=== PATIENT | female | born 1990 | race Caucasian/White ===

== ENCOUNTER 2017-01-06 15:52 | Emergency (ER) | payer MEDICAID ==
[~2017-01-06] VITALS: Wt 101.0 kg
[2017-01-06] MEDS ORDERED: SODIUM CHLORIDE 0.9% 1L BAG IV* STA (16:25)
[2017-01-06] MEDS ORDERED: ACETAMINOPHEN 325 MG TAB PO STA (16:25)
--- NOTE | 2017-01-06 16:38 | ERD ---
ER Documentation Chief Complaint Chief Complaint R FOOT PAIN X 3 DAYS HPI 26-year-old female presenting with a chief complaints of right foot pain 3 days. Patient has had flu with body aches, fevers and chills, dry cough headache 5 days. Patient states the pain came on gradually. History of poking foot with needle. Croswell like something was in her foot. Denies drug use or alcohol abuse. No medications or medical conditions. Pain is worse with walking or applying pressure. Denies numbness, tingling, loss of range of motion. Patient has no other complaints and describes no other associated manifestations. ROS All systems reviewed and are negative except as per history of present illness. Medications Home Meds Active Scripts Sulfamethoxazole/Trimethoprim* (Bactrim Ds* Tablet) 1 Each Tablet, 1 TAB PO BID , #14 TAB Prov:CATHY DUMONT PA-C 01/06/17 Cephalexin* (Keflex*) 500 Mg Capsule, 500 MG PO QID for 5 Days, CAP Prov:CATHY DUMONT PA-C 01/06/17 PMhx/Soc Medical and Surgical Hx: pt denies Medical Hx, pt denies Surgical Hx Hx Alcohol Use: No Hx Substance Use: No Hx Tobacco Use: No Smoking Status: Never smoker Physical Exam Vitals Vital Signs Date Time Temp Pulse Resp B/P Pulse Ox O2 Delivery O2 Flow Rate FiO2 01/06/17 20:12 98.3 90 20 121/74 98 Room Air 01/06/17 18:40 99.0 82 16 117/74 99 Room Air 01/06/17 15:54 102.1 125 18 123/76 99 Physical Exam Const: Obese 26-year-old female no acute distress and acting appropriately. Head: Atraumatic Eyes: Normal Conjunctiva ENT: Normal External Ears, Nose and Mouth. Neck: Full range of motion..~ No meningismus. Resp: Clear to auscultation bilaterally Cardio: Regular rate and rhythm, no murmurs Abd: Soft, non tender, non distended. Normal bowel sounds Skin: No petechiae or rashes Back: No midline or flank tenderness Ext: Tenderness palpation over the right heel just distal to the plantar arch on the plantar surface of the foot. No fluctuance or induration appreciated. No warmth, change in skin color. Neur: Awake and alert Psych: Normal Mood and Affect Result Diagram: 01/06/17 1715 01/06/17 1715 Results 24 hrs Laboratory Tests Test 01/06/17 17:15 01/06/17 17:28 01/06/17 18:33 White Blood Count 10.910^3/ul Red Blood Count 4.3710^6/ul Hemoglobin 13.2g/dl Hematocrit 38.3% Mean Corpuscular Volume 87.6fl Mean Corpuscular Hemoglobin 30.2pg Mean Corpuscular Hemoglobin Concent 34.5g/dl Red Cell Distribution Width 12.4% Platelet Count 94840^3/UL Mean Platelet Volume 9.8fl Neutrophils % 77.1% Lymphocytes % 13.5% Monocytes % 7.9% Eosinophils % 0.6% Basophils % 0.5% Nucleated Red Blood Cells % 0.0/100WBC Neutrophils # 8.410^3/ul Lymphocytes # 1.510^3/ul Monocytes # 0.910^3/ul Eosinophils # 0.110^3/ul Basophils # 0.110^3/ul Nucleated Red Blood Cells # 0.010^3/ul Prothrombin Time 13.0Sec Prothrombin Time Ratio 1.0 INR International Normalized Ratio 0.98 Activated Partial Thromboplast Time 27.6Sec Sodium Level 141mmol/L Potassium Level 4.0mmol/L Chloride Level 102mmol/L Carbon Dioxide Level 25mmol/L Anion Gap 18 Blood Urea Nitrogen 12mg/dl Creatinine 0.74mg/dl Glucose Level 101mg/dl Lactic Acid Level 1.0mmol/L 0.8mmol/L Calcium Level 9.0mg/dl Total Bilirubin 0.5mg/dl Direct Bilirubin 0.00mg/dl Indirect Bilirubin 0.5mg/dl Aspartate Amino Transf (AST/SGOT) 35IU/L Alanine Aminotransferase (ALT/SGPT) 26IU/L Alkaline Phosphatase 77IU/L Troponin I < 0.012ng/ml Total Protein 8.4g/dl Albumin 4.6g/dl Globulin 3.80g/dl Albumin/Globulin Ratio 1.21 Urine Color YELLOW Urine Clarity SLIGHTLY CLOUDY Urine pH 6.0 Urine Specific [place] 1.025 Urine Ketones NEGATIVEmg/dL Urine Nitrite NEGATIVEmg/dL Urine Bilirubin NEGATIVEmg/dL Urine Urobilinogen 1+mg/dL Urine Leukocyte Esterase 2+Veronica/ul Urine Microscopic RBC 104/HPF Urine Microscopic WBC 34/HPF Urine Squamous Epithelial Cells MODERATE/HPF Urine Transitional Epithelial Cells FEW/HPF Urine Bacteria FEW/HPF Urine Mucus FEW/HPF Urine Hemoglobin 3+mg/dL Urine Glucose NEGATIVEmg/dL Urine Total Protein 1+mg/dl Current Medications Medications (Trade) Dose Ordered Sig/Ena Route PRN Reason Start Time Stop Time Status Last Admin Dose Admin Sodium Chloride (NS) 3,130 ml BOLUS OVER 2 HOURS STAT IV* 01/06/17 16:25 01/06/17 16:30 DC 01/06/17 17:15 Acetaminophen (Tylenol Tab) 650 mg ONCE STAT PO 01/06/17 16:25 01/06/17 16:30 DC 01/06/17 17:25 Procedures/MDM Otherwise healthy 26-year-old female presents with a chief complaint of right foot pain 3 days as described in history and physical examination. Fever 5 days. Presented the case my attending Dr. German who has suggested septic workup as the patient is septic until proven otherwise. Septic workup was ordered. Patient was given saline and acetaminophen. Urine negative. Labs revealed the following: WBC 10.9. Neutrophils 77. Lymphocytes 13.5. Anion gap 18. Urinalysis revealed the following: Leukocyte esterase 2+. RBC 104. WBC 34. Epithelial cell female. Bacteria few. Hemoglobin 3+. No CVA tenderness. Tolerates p.o. Physical exam revealed no fluctuant areas. Bedside ultrasound showed no hypoechoic fluid areas for drainage. Most likely diagnosis is cellulitis of the right lower extremity versus UTI versus viral illness. I have spoken to my attending Dr. German who agrees with assessment and plan. Patient will be given Keflex and Bactrim. I have no suspicion for pyelonephritis, lymphangitis, osteomyelitis, neurovascular compromise, or other serious bacterial infection. I have spoke with the patient regarding their condition and future management. They have verbally responded that they understand their status and treatment plan. The patients vitals are stable, and their current condition is appropriate for discharge. The patient will be given discharge instructions with return precautions. Departure Diagnosis: Primary Impression: Foot pain Laterality: right Qualified Code: M79.671 - Right foot pain Additional Impression: UTI (urinary tract infection) Urinary tract infection type: site unspecified Hematuria presence: with hematuria Qualified Code: N39.0 - Urinary tract infection with hematuria, site unspecified Condition: Stable Additional Instructions: Follow up with your PCP within the next 1-3 days for a more thorough evaluation and a possible referral to a specialist. Return the the emergency department immediately if symptoms worsen or change. If you have any questions regarding medications, ask your pharmacist or us before you leave. If any adverse reactions occur while taking your medications, discontinue the treatment and return to the emergency department immediately. Take your medications as directed, and complete the entire course of treatment. CATHY DUMONT PA-C Jan 06, 2017 16:38
--- NOTE | 2017-01-06 17:19 | RADRPT ---
PROCEDURE: XR Chest. CLINICAL INDICATION: Sepsis. TECHNIQUE: Single frontal view. COMPARISON: None. FINDINGS: The lungs are clear. The heart size is normal. There is no pleural effusion. There is no pneumothorax. IMPRESSION: 1. Normal chest radiograph. RPTAT: QQ .Eloy Kiran MD, Date Time Electronically viewed and signed by .Eloy Kiran MD, on 01/06/2017 17:19 .R/
--- NOTE | 2017-01-06 17:20 | RADRPT ---
PROCEDURE: XR Right Foot. CLINICAL INDICATION: Sepsis. Right foot pain. TECHNIQUE: 3 views. Frontal, lateral, and oblique. COMPARISON: None. FINDINGS: There is no fracture or dislocation. The soft tissues are normal. Articular surfaces are intact. There is no lytic or blastic lesion. There is no radiopaque foreign body. IMPRESSION: 1. Normal images of the right foot. RPTAT: QQ .Eloy Kiran MD, MD Date Time Electronically viewed and signed by .Eloy Kiran MD, on 01/06/2017 17:20 .R/
[2017-01-06] MEDS ORDERED: SULF1TAB31 PO (19:04)
[2017-01-06] MEDS ORDERED: CEPH-443 PO (19:04)
[2017-01-06 20:12] VITALS: BP 121/74; PULSE 90; RESP 20; TEMP 98.3
== END 2017-01-06 20:13 | disposition home or self-care (01) ==
LOC: FTE 15:52
DX: M79.671 Pain in right foot (principal); N39.0 Urinary tract infection, site not specified; R07.9 Chest pain, unspecified
CPT/HCPCS: 36415; 71010; 73630; 80053; 81001; 83605; 84484; 85025; 85610; 85730; 87040; 87086; 93005; J7030; Z7502; Z7610

== ENCOUNTER 2017-02-16 16:38 | Emergency (ER) | payer MEDICAID ==
[~2017-02-16] VITALS: Ht 162.6 cm; Wt 100.9 kg
[~2017-02-16 16:38] MED LIST: CEPH-443 PO; SULF1TAB31 PO
[2017-02-16 16:45] VITALS: Ht 162.6 cm; Wt 100.9 kg
[2017-02-16] MEDS ORDERED: ONDANSETRON (ODT) 4 MG TAB ODT STA (17:46)
[2017-02-16] MEDS ORDERED: IBUPROFEN 600 MG TAB PO ONE (18:00)
--- NOTE | 2017-02-16 19:16 | RADRPT ---
PROCEDURE: XR Chest. CLINICAL INDICATION: Cough. TECHNIQUE: Single frontal view of the chest was obtained COMPARISON: None FINDINGS: The heart and mediastinum are within normal limits. The lungs are clear. There is no pleural effusion or pneumothorax. The osseous structures are unremarkable. IMPRESSION: 1. No acute cardiopulmonary disease. RPTAT:AAJJ Physician Denzel Date Time Electronically viewed and signed by Marlena García Physician on 02/16/2017 19:16 QL/
[2017-02-16] MEDS ORDERED: BENZ200C43 PO (19:23)
[2017-02-16] MEDS ORDERED: D-ME473S2 PO (19:23)
[2017-02-16 19:38] VITALS: BP 121/70; PULSE 105; RESP 16; TEMP 99.4
--- NOTE | 2017-02-16 23:15 | ERD ---
ER Documentation Chief Complaint Chief Complaint fever , vomiting x 1 day , cough x 2 weeks HPI This patient is an otherwise healthy 26-year-old female presenting to the emergency department with complaints of dry, nonproductive cough intermittently for the past 2 weeks. She is also explained some posttussive emesis. Symptoms are worse at night. She denies sick contacts. No other symptoms reported at this time. ROS All systems reviewed and are negative except as per history of present illness. Medications Home Meds Active Scripts Benzonatate* (Benzonatate*) 200 Mg Capsule, 200 MG PO TID Y for COUGH, #20 CAP Prov:DAVE JOHANSEN PA-C 02/16/17 Dextromethorphan Hb-Promethazine Hcl* (Promethazine DM* Syrup) 473 Ml Syrup, 5 ML PO Q6 Y for COUGH, #120 ML Prov:DAVE JOHANSEN PA-C 02/16/17 Sulfamethoxazole/Trimethoprim* (Bactrim Ds* Tablet) 1 Each Tablet, 1 TAB PO BID , #14 TAB Prov:CATHY DUMONT PA-C 01/06/17 Cephalexin* (Keflex*) 500 Mg Capsule, 500 MG PO QID for 5 Days, CAP Prov:CATHY DUMONT PA-C 01/06/17 Allergies Allergies: Coded Allergies: No Known Allergy (Unverified , 02/16/17) PMhx/Soc Medical and Surgical Hx: pt denies Medical Hx, pt denies Surgical Hx Hx Alcohol Use: No Hx Substance Use: No Hx Tobacco Use: No Smoking Status: Never smoker Physical Exam Vitals Vital Signs Date Time Temp Pulse Resp B/P Pulse Ox O2 Delivery O2 Flow Rate FiO2 02/16/17 19:38 99.4 105 16 121/70 96 Room Air 02/16/17 16:45 101.0 120 18 133/86 98 Physical Exam Const: Nontoxic, well-appearing female in no acute distress. Head: Atraumatic Eyes: Normal Conjunctiva ENT: Normal External Ears, Nose and Mouth. Neck: Full range of motion..~ No meningismus. Resp: Clear to auscultation bilaterally. No signs of respiratory distress. No crackles. No wheezing. Cardio: Regular rate and rhythm, no murmurs Abd: Soft, non tender, non distended. Normal bowel sounds Skin: No petechiae or rashes Back: No midline or flank tenderness Ext: No cyanosis, or edema Neur: Awake and alert Psych: Normal Mood and Affect Results 24 hrs Current Medications Medications (Trade) Dose Ordered Sig/Ena Route PRN Reason Start Time Stop Time Status Last Admin Dose Admin Ondansetron HCl (Zofran Odt) 4 mg ONCE STAT ODT 02/16/17 17:46 02/16/17 17:47 DC 02/16/17 18:12 Ibuprofen (Motrin) 600 mg ONCE ONCE PO 02/16/17 18:00 02/16/17 18:01 DC 02/16/17 18:12 Procedures/MDM Patient is a pleasant 26-year-old female presenting to the emergency department with complaints of cough with posttussive emesis. Physical examination is essentially unremarkable, except for a low-grade temperature and slight tachycardia. I believe the tachycardia is likely secondary to the patient's fever and acute illness. The patient was given antipyretics in the department. Chest x-ray showed no acute abnormalities. Patient's symptoms are likely secondary to a viral upper respiratory infection. She stable and appropriate for outpatient management with prescriptions. No evidence of life-threatening pathology at time of discharge. Pt/family in agreement with discharge plan/ diagnosis. Pt/family advised to return immediately with any new or worsening symptoms. Follow-up with primary care physician within the next 1-2 days. PROCEDURE: XR Chest. CLINICAL INDICATION: Cough. TECHNIQUE: Single frontal view of the chest was obtained COMPARISON: None FINDINGS: The heart and mediastinum are within normal limits. The lungs are clear. There is no pleural effusion or pneumothorax. The osseous structures are unremarkable. IMPRESSION: 1. No acute cardiopulmonary disease. RPTAT:AAJJ Physician Denzel Date Time Electronically viewed and signed by Physician Denzel on 02/16/2017 19:16 Departure Diagnosis: Primary Impression: Cough Condition: Fair Patient Instructions: Cough, Chronic, Uncertain Cause, (Adult) Referrals: COMM[facility] YOU HAVE RECEIVED A MEDICAL SCREENING EXAM AND THE RESULTS INDICATE THAT YOU DO NOT HAVE A CONDITION THAT REQUIRES URGENT TREATMENT IN THE EMERGENCY DEPARTMENT. FURTHER EVALUATION AND TREATMENT OF YOUR CONDITION CAN WAIT UNTIL YOU ARE SEEN IN YOUR DOCTORS OFFICE WITHIN THE NEXT 1-2 DAYS. IT IS YOUR RESPONSIBILITY TO MAKE AN APPOINTMENT FOR FOLOW-UP CARE. IF YOU HAVE A PRIMARY DOCTOR --you should call your primary doctor and schedule an appointment IF YOU DO NOT HAVE A PRIMARY DOCTOR YOU CAN CALL OUR PHYSICIAN REFERRAL HOTLINE AT IF YOU CAN NOT AFFORD TO SEE A PHYSICIAN YOU CAN CHOSE FROM THE FOLLOWING [facility] [address] [facility] [address] [employer] [facility] [address] [facility] [address] [facility] [address] [facility]. [facility]. [address] Additional Instructions: Call your primary care doctor TOMORROW for an appointment during the next 1-2 days.See the doctor sooner or return here if your condition worsens before your appointment time. DAVE JOHANSEN PA-C Feb 16, 2017 23:15
== END 2017-02-16 19:37 | disposition home or self-care (01) ==
LOC: FTE 16:38
DX: R05 Cough (principal); R11.10 Vomiting, unspecified
CPT/HCPCS: 71010; Z7502; Z7610

== ENCOUNTER 2018-01-04 20:15 | Emergency (ER) | END 2018-01-05 00:05 | disposition home or self-care (01) ==

== ENCOUNTER 2018-08-12 23:20 | Outpatient (CLI) | payer MEDICAID ==
[~2018-08-12 23:20] MED LIST changes: +ACET500C5 PO; +BENZ200C68 PO; +D-ME473S2 PO; +METO10TA92 PO; +SODI126M NASAL
--- NOTE | 2018-08-13 07:02 | PN ---
Triage Information Date/Time Reason for visit: Patient is here for NST and BPP and estimated weight Weeks of Gestation Patient is a 27-year-old 2 para 1 at 39 weeks and 1 day of gestation with estimated date of delivery August 17, 2018 She was evaluated last week by perinatologist and told that her baby is suspected for macrosomia weighing 8 pounds and 15 ounces She is here for follow-up for repeat EFW and NST and BPP Patient reports positive movement, denies vaginal bleeding and leaking fluid, denies uterine contractions /Para 2 para 1 Diabetes: none Hypertention: none Objective Heart Rate: 140's Heart Rate Comments heart rate tracing category 1 Contractions: None Results/Medications Imaging Results PROCEDURE: Obstetrical ultrasound. CLINICAL INDICATION: , evaluation. Pelvic pain. TECHNIQUE: Transabdominal sonographic images of the uterus obtained after first trimester, greater than 14 weeks gestation. Single intrauterine gestation present. Complete anatomic survey is not performed in this examination; if needed an additional dedicated examination can be performed for complete anatomic survey. COMPARISON: 08/07/2018 FINDINGS: Single intrauterine gestation. There is a cephalic presentation. Measurements were made in order to determine age. The results are as follows: BPD = 39 weeks 2 day(s) HC = 40 weeks 3 day(s) AC = out of range FL = 40 weeks 1 day(s) JENNIFER (cm) = not measured Heart rate = 146 beats per minute The placenta is fundal. There is no evidence for an abruption or placenta previa. Ovaries are not visualized. IMPRESSION: Single intrauterine gestation of approximately 40 weeks 0 days by ultrasound criteria. [place] estimated weight = 4645 g; >97 percentile for gestational age of 39 weeks 2 days. RPTAT: AADD .Deuce Keith MD, MD Date Time Electronically viewed and signed by .Deuce Keith MD, MD on 08/13/2018 00:39 .B/ CC: ALIX AMBROSE [phone] PROCEDURE: Obstetrical ultrasound for biophysical profile CLINICAL INDICATION: Biophysical profile. . TECHNIQUE: Obstetrical ultrasound of the uterus for biophysical profile. Transabdominal views are obtained. COMPARISON: US 08/07/2018; US PELVIS 01/04/2018 FINDINGS: Single intrauterine gestation. Presentation: Cephalic. Placenta: Fundal No evidence of placental abruption. No evidence of placenta previa. breathing movement = 2/2 tone = 2/2 motion = 2/2 JENNIFER = 2/2 JENNIFER = 9.9 cm heart rate: 144 beats per minute IMPRESSION: Single intrauterine gestation. Biophysical profile 10/09 RPTAT: AADD .Deuce Keith MD, MD Date Time Electronically viewed and signed by .Deuce Keith MD, MD on 08/13/2018 00:27 .B/ CC: ALIX AMBROSE [phone] Disposition: Discharge Assessment/Plan I discussed in details the risk of shoulder dystocia and recommended that patient should be admitted for primary for macrosomia Although patient left AGAINST MEDICAL ADVICE She agreed to return at 7 AM for reevaluation by her own MILLER HEAD kick count instructions were given Labor precautions were given MALCOLM SERNA MD Aug 13, 2018 07:02
[2018-08-13] MEDS ORDERED: PNV11TAB PO (10:04)
== END 2018-08-13 01:18 | disposition left against medical advice (07) ==
LOC: OBT 23:20 → L-D 23:20 → OBT 08-13 01:18
PROVIDERS: ATTEND Obstetrics & Gynecology
DX: O36.8330 Maternal care for abnormalities of the fetal heart rate or rhythm, third trimester, not applicable or unspecified (principal); Z3A.39 39 weeks gestation of pregnancy
CPT/HCPCS: 76815; 76818; Z7500; G0463

== ENCOUNTER 2018-08-13 08:57 | Inpatient (IN) | payer MEDICAID ==
[2018-08-13] VITALS (7 sets, daily range): BP systolic 96–134; BP diastolic 44–66; PULSE 89; RESP 16–18; Ht 162.6 cm; Wt 106.4 kg
[~2018-08-13] VITALS: Ht 162.6 cm; Wt 106.4 kg
[2018-08-13] MEDS ORDERED: OXYTOCIN 30 UNITS/LR 500 ML IV SCH ×2 (10:00→21:35)
[2018-08-13] MEDS ORDERED: CEFAZOLIN 2 GM/50 ML (PMX) 50 ML IVPB SCH (10:00)
[2018-08-13] MEDS ORDERED: MISOPROSTOL 200 MCG TAB PR PRN ×2 (10:00→22:00)
[2018-08-13] MEDS ORDERED: CARBOPROST 250 MCG INJ IM PRN ×2 (10:00→22:00)
[2018-08-13] MEDS ORDERED: METHYLERGONOVINE 0.2 MG INJ IM PRN ×2 (10:00→22:00)
[2018-08-13] MEDS ORDERED: OXYTOCIN 30 UNITS/LR 500 ML IV PRN ×2 (10:00→22:00)
[2018-08-13] MEDS ORDERED: PNV11TAB PO (10:04)
[2018-08-13] MEDS: LACTATED RINGER'S 1,000 ML IV SCH ×2 (10:10→12:37)
--- NOTE | 2018-08-13 10:55 | HP ---
Date/Time of Note Date/Time of Note DATE: 08/13/18 TIME: 10:38 OB - History Hx of Present Free Text/Dictation 27 years old 2 para 1-0-0-1 with single intrauterine at 39 weeks and 3 days with suspected macrosomia. She was seen in triage last night, EFW was 10 pounds and 2 ounces. She had one normal vaginal delivery, baby was 9 pounds. Per patient there was shoulder dystocia with first baby, states she almost fainted and there was many nurse and physicians in her room and the delivery was extremely difficult. She states good movement. She denies nausea, vomiting, shortness of breath, chest pain, headache, visual changes, vaginal bleeding or LOF. Chief Complaint: Uterine contractions Estimated Due Date: Aug 17, 2018 : 2 Para: 1 Spontaneous : 0 Therapeutic : 0 Care: Good Care Ultrasounds: Normal mid trimester US Obstetrical Complications: None Medical Complications: None Past Family/Social History * Past Medical, Surgical, Family and Obstetric Histories reviewed from chart. Blood Type: O+ Rubella: immune RPR/VDRL: Negative GBS Status: Positive HBsAG: Negative OB Admission Exam Vital Signs Vital Signs Blood pressure 120/64, pulse rate 69/minutes, respiratory rate 16/minutes, temperature 98.5 Physical Exam HEENT: WNL Heart: Rhythm Normal Lungs: Clear Abdomen: WNL Extremities: Normal Reflexes: Normal Cervical Dilatation: 1cm Effacement: 50% Station: -3 Membranes: Intact Heart Rate: 140's Accelerations: Accelerations Present Decelerations: No Decelerations Varibility: Moderate Contractions on Admission: 6-10 Minutes Apart Intensity: Mild Last 72 hours Lab Results OB Assessment/Plan Other plan: 27 years old 2 para 1-0-0-1 with single intrauterine at 39 weeks and 3 days with suspected macrosomia (10 pound 2 ounces - 4645 g) and history of shoulder dystocia with delivery of 9 pound baby in previous desiring delivery -FHR: No sign of metabolic acidosis- Category I -Continuous EFM, toco -CBC, blood type and screen -Please see the orders -O+/Rubella: Immune -GBS: Positive I have discussed there are greater risk with increase weight compare to the general obstetric population which including but not limited to Labor abno rmalities, increase risk of delivery and shoulder dystocia with risk of fracture of the clavicle, humerus and damage to the nerves of the brachial plexus, risk of morbidity for . Persistent injury is more common with higher weights, and weights greater than 4,500 gram in particular. Some severe cases of shoulder dystocia may result in hypoxic-ischemic e ncephalopathy and even . I also discussed shoulder dystocia and brachial plexus injury can occur with delivery too. [place] complications and injury (eg, low score, assisted ventilation longer than 30 minutes, increased rates of admission and prolonged admission (greater than 3 days) to a intensive care unit. Increase risk of maternal hemorrhage after delivery, significant vaginal lacerations and fourth-degree lacerations. She and her mother expressed understanding, all of their questions answered. She would like to have delivery. The risk of delivery including but not limited to bleeding, infection, injury to other organs (bowel, bladder, ureter, vessels, nerves), injury to fetus, blood transfusion, blood transfusion related infection, risk of anesthesia, adhesion, needs for future , removal of uterus or any other indicated surgery was discussed with the patient and her family. She expressed understanding. All of her questions were answered. She signed the informed consent. PHYSICIAN'S VERIFICATION OF INFORMED CONSENT The patient and her mother counseled regarding the procedure, its indications, risks, potential complications and alternatives and any questions were answered. Consent was obtained. PLANNED PROCEDURE/TREATMENT: delivery with possible using vacuum/forceps and any other indicated surgery PHYSICIAN'S VERIFICATION OF INFORMED CONSENT FOR BLOOD TRANSFUSION: There is a reasonable possibility that blood transfusion will be necessary as a result of the patient's procedure. I have discussed the following with the patient/patient's legal independent sales representative: An explanation of the benefits and risks of the transfusion of blood or blood products and the possible alternatives. All questions have been answered to the patient's satisfaction. INFORMED CONSENT:The patient has been informed of: The nature of the proposed care, treatment, services, medications, interventions or procedures. Potential benefits, risks or side effects, including potential problems related to recuperation. The likelihood of achieving care treatment and service goals. Reasonable alternatives to the proposed care, treatment and service. The relevant risks, benefits and side effects related to alternatives, inc luding the possible results of not receiving care, treatment and services. When indicated, any limitations on the confidentiality of information learned from or about the patient. If appropriate, the risks, benefits and alternatives of the drugs to be used for sedation/analgesia including moderate sedation. If appropriate, patient has been provided information on the risks, benefits and alternatives to the transfusion of blood and/or blood products. If appropriate, patient has been provided information regarding the Yogesh Kevin Blood Act. ALIX AMBROSE Aug 13, 2018 10:55
--- NOTE | 2018-08-13 14:17 | PREAC ---
Date/Time of Note Date/Time of Note DATE: 08/13/18 TIME: 14:16 Anesthesia Eval and Record Evaluation Time Pre-Procedure Interview DATE: 08/13/18 TIME: 14:16 Age 27 Sex female NPO: 8 hrs Preoperative diagnosis MACROSOMIA Planned procedure PRIMARY C SECTION Past Medical History Past Medical History: Includes : : (2), Para: (1) Surgery & Anesthesia Issues No known issue Meds Anticoagulation: No Beta Eneida within 24 hr: No Reason Beta Eneida not given: Pt. not on B-Eneida Reported Medications [id number] ( 19) 1 Each Tablet, 1 TAB PO DAILY, TAB 08/13/18 Discontinued Scripts Metoclopramide* (Reglan*) 10 Mg Tablet, 10 MG PO Q6 PRN for NAUSEA AND/OR VOMITING, #10 TAB Prov:CLARISSA SALINAS PA-C 01/04/18 Sodium Chloride (Saline Nasal Mist) 126 Ml Mist, 2 SPRAY NASAL DAILY, #1 BOTTLE Prov:CLARISSA SALINAS PA-C 01/04/18 Acetaminophen* (Tylophen*) 500 Mg Capsule, 1 CAP PO Q6H PRN for PAIN AND OR ELEVATED TEMP, #20 CAP Prov:CLARISSA SALINAS PA-C 01/04/18 Cephalexin* (Keflex*) 500 Mg Capsule, 500 MG PO BID for 7 Days, CAP Prov:CLARISSA SALINAS PA-C 01/04/18 Benzonatate* (Benzonatate*) 200 Mg Capsule, 200 MG PO TID PRN for COUGH, #20 CAP Prov:DAVE JOHANSEN PA-C 02/16/17 Dextromethorphan Hb-Promethazine Hcl* (Promethazine DM* Syrup) 473 Ml Syrup, 5 ML PO Q6 PRN for COUGH, #120 ML Prov:DAVE JOHANSEN PA-C 02/16/17 Sulfamethoxazole/Trimethoprim* (Bactrim Ds* Tablet) 1 Each Tablet, 1 TAB PO BID, #14 TAB Prov:CATHY DUMONT PA-C 01/06/17 Cephalexin* (Keflex*) 500 Mg Capsule, 500 MG PO QID for 5 Days, CAP Prov:CATHY DUMONT PA-C 01/06/17 Current Medications Lactated Ringer's 1,000 ml @ 125 mls/hr Q8H IV Last administered on 08/13/18at 12:37; Admin Dose 125 MLS/HR; Start 08/13/18 at 09:35 Cefazolin Sodium/ Dextrose 50 ml @ 100 mls/hr ONCE IVPB ; Start 08/13/18 at 10:00 Oxytocin/Lactated Ringer's 500 ml @ 125 mls/hr POST IV ; Start 08/13/18 at 10:00 Oxytocin/Lactated Ringer's 500 ml @ 0 mls/hr ONCE PRN IV .VAGINAL BLEEDING; Start 08/13/18 at 10:00 Methylergonovine Maleate (Methergine) 0.2 mg ONCE PRN IM .VAGINAL BLEEDING; Start 08/13/18 at 10:00 Carboprost Tromethamine (Hemabate) 250 mcg ONCE PRN IM .VAGINAL BLEEDING; Start 08/13/18 at 10:00 Misoprostol (Cytotec) 1,000 mcg ONCE PRN UT .VAGINAL BLEEDING; Start 08/13/18 at 10:00 Meds reviewed: Yes Allergies Coded Allergies: No Known Allergy (Unverified , 01/04/18) Allergies Reviewed: Yes Labs/Studies Labs Reviewed: Reviewed by anesthesiologist Result Diagram: 08/13/18 0950 Laboratory Tests 08/13/18 09:50 Blood Bank Test 08/13/18 09:50 Antibody Screen NEGATIVE Blood Type O POSITIVE Rh Immune Globulin Candidate NO test: N/A Pre-procedure Exam Airway: Adequate mouth opening, Adequate thyromental dist Mallampati: Mallampati II Teeth: Normal Lung: Normal Heart: Normal ASA Physical Status ASA physical status: 2 Emergency: None Planned Anesthetic Neuraxial: Spinal Planned Pain Management Epidural Pre-operative Attestations Prior to commencing anesthesia and surgery, the patient was re-evaluated, there was verification of: *The patient's identity *The results of appropriate recent lab work and preoperative vital signs *The above evaluation not changing prior to induction *Anesthetic plan, risk benefits, alternative and complications discussed with patient/family; questions answered; patient/family understands, accepts and wishes to proceed. Iglesia Raphael M.D. Aug 13, 2018 14:17
[2018-08-13] MEDS ORDERED: ONDANSETRON 4 MG INJ IV STA (15:22)
[2018-08-13] MEDS ORDERED: CITRIC ACID/NA CITRATE 30 ML CUP ONE (15:30)
[2018-08-13] MEDS ORDERED: CITRIC ACID/NA CITRATE 30 ML CUP PO ONE (15:30)
[2018-08-13] MEDS ORDERED: ONDANSETRON 4 MG INJ ONE (15:31)
[2018-08-13] MEDS ORDERED: morphine SULFATE/PF (10 MG/10 ML) INJ ONE (17:05)
[2018-08-13] MEDS ORDERED: METOCLOPRAMIDE 10 MG INJ ONE (17:05)
[2018-08-13] MEDS ORDERED: OXYTOCIN 10 UNIT INJ ONE (17:06)
--- NOTE | 2018-08-13 18:48 | OPR ---
Operative Report Planned Procedure Procedure date Aug 13, 2018 Procedure(s) Primary low transverse delivery Performed by see signature line Fashion Adviser: MIRACLE ROSS MD Anesthesiologist: Iglesia Raphael M.D. Pre-procedure diagnosis 27 years old 2 para 1-0-0-1 with single intrauterine at 39 weeks and 3 days with suspected macrosomia (10 pound 2 ounces) and history of shoulder dystocia with delivery of 9 pound baby in previous [id number] Anesthesia Type: Hbnnw2h spinal Post-Procedure Post-procedure diagnosis 27 years old 2 para 1-0-0-1 with single intrauterine at 39 weeks and 3 days with LGA (10 pound 3 ounces at delivery) Findings 1. Normal uterus, fallopian tubes and ovaries 2. Viable male in cephalic presentation. 9 at one minute and 9 in 5 minutes. Weight: 10 pounds 3 ounces. Time of delivery: 17:46 3. Placenta with three vessel cord 4. Amniotic fluid - Clear Estimated Blood Loss: 600 - 700 mls Specimen(s) Placenta Grafts/Implant(s) none Complication(s) none Pt Condition post procedure: stable Disposition: PACU Procedure Description INDICATION AND HISTORY: A 27 years old 2 para 1-0-0-1 with single intrauterine at 39 weeks and 3 days with suspected macrosomia (10 pound 2 ounces). Please see the H&P for details. The risk of delivery including but not limited to bleeding, infection, injury to other organs (bowel, bladder, ureter, vessels, nerves), injury to fetus, blood transfusion, blood transfusion related infection, risk of anesthesia, adhesion, needs for future , removal of uterus or any other indicated surgery was discussed with the patient and her family. She expressed understanding. All of her questions were answered. She signed the informed consent. DESCRIPTION OF OPERATION: The patient was taken to the operating room, where she was identified and the procedure was verified. The patient received two gram of Ancef 30 minutes prior to surgery. Spinal anesthesia was placed by anesthesiologist. The patient placed in the dorsal supine position with a left tilt. The heart rate was 128 bpm. The patient was then prepped and draped in the normal sterile fashion. A Pfannenstiel skin incision was made and carried down to the fascia with Bovie. The fascia was incised in the midline and the fascial incision was carried laterally with Merritt scissors. The superior portion of the fascial incision was then grasped with Estrada clamps and tented up and dissected off the underlying rectus muscle with sharp dissection. The lower portion of the fascial incision was then made in a similar fashion. The rectus muscle was and the peritoneum was entered. The peritoneal incision was then stretched and a bladder blade was inserted. Then, an incision was made in the lower uterine segment in a transverse fashion with a knife and extended bluntly. The was delivered atraumatically in cephalic presentation with the above findings. The umbilical cord was clamped and cut. The neonatology resuscitation team was present and the baby was handed to them. A cord blood sample was obtained for further evaluation. The placenta and membrane, which appeared normal were Removed. The uterus was exteriorized and cleared of all clot and debris. The uterus was then closed in a two layer fashion with 0- Monocryl. At the time of closure, hemostasis was noted. The gutters were irrigated. The peritoneum was reapproximated with 3-0 Vicryl. The muscle was reapproximated with 3-0 Vicryl. The fascia was approximated with 0-Vicryl in a running fashion. The subcutaneous tissue was re approximated with 3-0 vicryl in 2 layer. The skin was closed with 4-0 Monocryl. All instruments, sponges and needle counts were correct x3. The patient tolerated the procedure well. She transferred to the recovery room in stable condition. ALIX AMBROSE Aug 13, 2018 18:48
--- NOTE | 2018-08-13 20:40 | PAC ---
Date/Time of Note Date/Time of Note DATE: 08/13/18 TIME: 20:40 Post-Anesthesia Notes Post-Anesthesia Note Last documented vital signs Vital Signs Date Temp Pulse Resp B/P (MAP) Pulse Ox O2 O2 Flow FiO2 Time Delivery Rate 08/13/18 17 116/63 97 20:16 (80) 08/13/18 98.1 19:32 Activity: WNL Respiratory function: WNL Cardiovascular function: WNL Mental status: Baseline Pain reasonably controlled: Yes Hydration appropriate: Yes Nausea/Vomiting absent: Yes Iglesia Raphael M.D. Aug 13, 2018 20:40
[2018-08-13] MEDS ORDERED: DIPHENHYDRAMINE 50 MG INJ IV PRN ×2 (21:00)
[2018-08-13] MEDS ORDERED: KETOROLAC 30 MG INJ IV PRN (21:00)
[2018-08-13] MEDS ORDERED: FENTAnyl 50 MCG/ML VIAL IV PRN ×3 (21:00)
[2018-08-13] MEDS ORDERED: ALBUTEROL 0.083% (NEB) 2.5 MG/3 ML AMP HHN PRN (21:00)
[2018-08-13] MEDS ORDERED: LABETALOL HCL 20MG INJ IV PRN (21:00)
[2018-08-13] MEDS ORDERED: HYDROmorphONE 1 MG/5 ML IV SYRINGE IV PRN ×3 (21:00)
[2018-08-13] MEDS ORDERED: hydrALAzine 20 MG INJ IV PRN (21:00)
[2018-08-13] MEDS ORDERED: TRIMETHOBENZAMIDE 100 MG/ML VIAL IM PRN ×2 (21:00)
[2018-08-13] MEDS ORDERED: IPRATROPIUM (NEB) 0.5 MG/2.5 ML AMP HHN PRN (21:00)
[2018-08-13] MEDS ORDERED: morphine 2 MG INJ IV PRN ×2 (21:00)
[2018-08-13] MEDS ORDERED: EPHEDrine 25 MG/5 ML SYG IV PRN (21:00)
[2018-08-13] MEDS ORDERED: MIDAZOLAM 1 MG/ML 2 ML INJ IV PRN (21:00)
[2018-08-13] MEDS ORDERED: NALOXONE (0.4 MG/ML) INJ IV PRN (21:00)
[2018-08-13] MEDS ORDERED: ONDANSETRON 4 MG INJ IV PRN ×2 (21:00)
[2018-08-13] MEDS ORDERED: MEPERIDINE 25 MG INJ IV PRN (21:00)
[2018-08-13] MEDS ORDERED: NALBUPHINE HCL (10 MG/1 ML) INJ IV PRN (21:00)
[2018-08-13] MEDS ORDERED: OXYCODONE/ACETAMINOPHEN (5/325) TAB PO PRN ×2 (21:00)
[2018-08-13] MEDS ORDERED: METHYLERGONOVINE 0.2 MG TAB PO PRN (22:00)
[2018-08-13] MEDS ORDERED: LANOLIN HPA 1 PKT TOP PRN (22:00)
[2018-08-14] VITALS: BP 96/60; PULSE 85; RESP 18
[2018-08-14] MEDS: DEXTROSE 5%-LR 1,000 ML IV SCH ×3 (05:35→13:35)
[2018-08-14 08:00] VITALS: BP 102/78; PULSE 83; RESP 20
[2018-08-14] MEDS: SENNA/DOCUSATE NA (8.6MG/50MG) TAB PO SCH ×2 (09:59→21:00)
[2018-08-14] MEDS ORDERED: DIPHTH/TET/ACEL PERTUSS (ADULT) 0.5 ML VIAL IM* ONE (11:00)
--- NOTE | 2018-08-14 13:11 | PN ---
Date/Time of Note Date/Time of Note DATE: 08/14/18 TIME: 13:08 OB Subjective Subjective Subjective Is not passed gas yet. Breast-feeding. Reports pain with ambulation and mov ing. Denies any pain when comfortable in bed. Has not been out of the bed yet. Tolerated clear liquid diet. OB Objective Objective Objective General appearance: Alert and oriented x4 does not appear to be in acute distress Abdomen: Soft, fundus palpable at the level of umbilicus. Appropriate tenderness in the incision in the lower abdomen noted Incision: Clean dry and intact Extremity: No calf tenderness, no click no edema no cord palpable Godwin draining clear yellow urine SCD on Lungs: Clear to auscultation bilaterally CV: RRR VS - Last 72 Hours, by Label Date Temp Pulse Resp B/P (MAP) Pulse Ox O2 O2 Flow FiO2 Time Delivery Rate 08/14/18 98.3 83 20 102/78 Room Air 08:00 (86) 08/14/18 98.0 85 18 96/60 (72) 95 00:00 08/13/18 98.4 89 18 105/58 94 Room Air 21:50 (74) 08/13/18 98.2 17 112/66 99 20:50 (81) 08/13/18 98.3 18 110/61 20:35 (77) 08/13/18 17 116/63 97 20:16 (80) 08/13/18 16 131/65 97 20:02 (87) 08/13/18 17 134/60 99 19:48 (84) 08/13/18 98.1 17 96/44 (61) 19:32 Laboratory Tests Test 08/14/18 06:23 08/14/18 07:10 Lab Scanned Report REFERENCE LAB White Blood Count 8.1 Red Blood Count 3.48 L Hemoglobin 10.1 L Hematocrit 29.9 L Mean Corpuscular Volume 85.9 Mean Corpuscular Hemoglobin 29.0 Mean Corpuscular Hemoglobin Concent 33.8 Red Cell Distribution Width 13.9 Platelet Count 228 Mean Platelet Volume 10.4 Immature Granulocytes % 0.400 Neutrophils % 69.9 Lymphocytes % 18.3 Monocytes % 9.4 Eosinophils % 1.5 Basophils % 0.5 Nucleated Red Blood Cells % 0.0 Immature Granulocytes # 0.030 Neutrophils # 5.7 Lymphocytes # 1.5 Monocytes # 0.8 Eosinophils # 0.1 Basophils # 0.0 Nucleated Red Blood Cells # 0.0 OB Assessment/Plan Other Assessment: s/p section POD #1 Doing well. Routine postop care DC Godwin Advance diet Ambulation Routine postop care DEMI SHAFFER MD Aug 14, 2018 13:11
[2018-08-14 16:51] VITALS: BP 102/62; PULSE 86; RESP 18
[2018-08-14] MEDS ORDERED: HYDROCODONE/APAP (5/325) TAB PO PRN (18:30)
[2018-08-14] MEDS: IBUPROFEN 800 MG TAB PO SCH (18:36)
[2018-08-14] MEDS: HYDROCODONE/APAP (5/325) TAB PO SCH (18:36)
[2018-08-14 20:32] VITALS: BP 107/70; PULSE 80; RESP 18
[2018-08-14] MEDS: MAGNESIUM HYDROXIDE 30ML CUP PO PRN (23:15)
[2018-08-15 02:33] VITALS: BP 104/63; PULSE 72; RESP 18
[2018-08-15] MEDS: IBUPROFEN 800 MG TAB PO SCH ×3 (04:11→18:12)
[2018-08-15] MEDS: HYDROCODONE/APAP (5/325) TAB PO SCH ×4 (04:13→23:56)
[2018-08-15] MEDS: DEXTROSE 5%-LR 1,000 ML IV SCH ×3 (04:14→23:56)
[2018-08-15 08:00] VITALS: BP 95/60; PULSE 74; RESP 19
[2018-08-15] MEDS: SENNA/DOCUSATE NA (8.6MG/50MG) TAB PO SCH ×2 (10:33→23:31)
[2018-08-15 16:00] VITALS: BP 101/69; PULSE 78; RESP 19
--- NOTE | 2018-08-15 16:21 | QN ---
Documentation Comment no b,m passing flatus vss a febrile abdomen soft wound dry lochia min calf neg for tenderness po 8.1/10.1,29.9/220 A stable s/p prim c/s #2 P discharge home in am MIRACLE ROSS MD Aug 15, 2018 16:21
[2018-08-15] MEDS: MAGNESIUM HYDROXIDE 30ML CUP PO PRN (16:34)
[2018-08-15 20:00] VITALS: BP 118/64; PULSE 63; RESP 18
--- NOTE | 2018-08-15 22:04 | DS ---
Date/Time of Note Date/Time of Note DATE: 08/15/18 TIME: 22:01 Obstetrical Discharge Record Final Diagnosis Final Diagnosis: Term delivered Other Final Diagnosis 27 years old 2 para 2002 s/p primary delivery for suspected macrosomia at 39 weeks and 3 days. Post day 2. course was unremarkable. She is ambulating and tolerating regular diet. She is voiding without difficulty. Pain is controlled on current medication. - AF, VSS - Contraception methods with R/B/A/FR discussed - Continue care - Discharge home tomorrow - Rx and instruction given - Follow up in one and 6 weeks Section Section: Primary (Suspected macrosomia) Condition on Discharge Physical Assessment Last Vitals: Vital Signs Date Temp Pulse Resp B/P (MAP) Pulse Ox O2 O2 Flow FiO2 Time Delivery Rate 08/15/18 98.2 78 19 101/69 Room Air 16:00 (80) 08/14/18 95 00:00 Voiding: Yes Bowel Movement: Yes Breast: Soft, non-tender Fundus: Firm Calf Tenderness: No Patient Condition: Stable ALIX AMBROSE Aug 15, 2018 22:04
[2018-08-16] MEDS: IBUPROFEN 800 MG TAB PO SCH ×2 (02:04→05:36)
[2018-08-16 03:51] VITALS: BP 102/65; PULSE 80; RESP 18
[2018-08-16] MEDS: DEXTROSE 5%-LR 1,000 ML IV SCH (05:35)
[2018-08-16] MEDS: HYDROCODONE/APAP (5/325) TAB PO SCH (05:37)
[2018-08-16 08:00] VITALS: BP 110/70; PULSE 82; RESP 18
[2018-08-16] MEDS ORDERED: MEASLES,MUMPS,RUBELLA VACCINE INJ SC* ONE (09:00)
[2018-08-16] MEDS ORDERED: DIPHTH/TET/ACEL PERTUSS (ADULT) 0.5 ML VIAL IM* ONE (09:00)
[2018-08-16] MEDS: MAGNESIUM HYDROXIDE 30ML CUP PO PRN (09:15)
[2018-08-16] MEDS: SENNA/DOCUSATE NA (8.6MG/50MG) TAB PO SCH (09:16)
--- NOTE | 2018-08-17 15:01 | DELSUM ---
Delivery Summary A-C Datetime Report Generated by CPN: 08/17/2018 15:00 DELIVERY PERSONNEL Check Out Clerk: Derek, Valery MATERNAL INFORMATION Delivery Anesthesia: Spinal Medications in Delivery: SEE ANESTHESIA RECORD Delivery QBL (ml): 600 Placenta Cultured: No Maternal Complications: Other Other Maternal Complications: MACROSOMIA LABOR SUMMARY EDC: 08/17/2018 00:00 No. Babies in Womb: 1 Attempted: No Labor Anesthesia: None LABOR INFORMATION Reason for Induction: Not Applicable Oxytocin: N/A Group B Beta Strep: Positive Antibiotics # of Doses: 1 Antibiotics Time of Last Dose: 08/13/2018 17:08 Steroids Given: None Reason Steroids Not Administered: Not Applicable MEMBRANES Membranes Rupture Method: Artificial Rupture of Membranes: 08/13/2018 17:46 Length of Rupture (hr): 0.00 Amniotic Fluid Color: Clear Amniotic Fluid Amount: Moderate Amniotic Fluid Odor: None STAGES OF LABOR Stage 3 hr: 0 Stage 3 min: 2 CSECTION DELIVERY Primary Indication: Other Other Primary Indication: MACROSOMIA CSection Urgency: Non Elective CSection Incidence: Primary Labor: No Labor Elective: Nonelective CSection Incision: Lower Uterine Transverse BABY A INFORMATION Delivery Date/Time: 08/13/2018 17:46 Method of Delivery: Born in Route : No : N/A Forceps: N/A Vacuum Extraction: N/A Shoulder Dystocia : N/A SHOULDER DYSTOCIA BABY A Infant Delivery Date/Time: 08/13/2018 17:46 PRESENTATION/POSITION BABY A Presentation: Cephalic Cephalic Presentation: Vertex Vertex Position: n/a Breech Presentation: N/A PLACENTA INFORMATION BABY A Placenta Delivery Time : 08/13/2018 17:48 Placenta Method of Delivery: Manual Removal Placenta Status: Delivered SCORES BABY A Heart Rate 1 min: >100 bpm Resp Effort 1 min: Good Cry Reflex Irritability 1 min: Cough/Sneeze/Pulls Away Muscle Tone 1 min: Active Motion Color 1 min: Body [employer], Extremit Blue Resuscitation Effort 1 min: Tactile Stimulation SCORE 1 MIN: 9 Heart Rate 5 min: >100 bpm Resp Effort 5 min: Good Cry Reflex Irritability 5 min: Cough/Sneeze/Pulls Away Muscle Tone 5 min: Active Motion Color 5 min: Body [employer], Extremit Blue Resuscitation Effort 5 min: Tactile Stimulation SCORE 5 MIN: 9 INFORMATION BABY A Gestational Age at Delivery: 39.3 Gestational Status: Full Term- 39- 40.6 Weeks Outcome : Liveborn Infant Condition : Stable Sex: Male IDENTIFICATION/MEDS BABY A ID Band Number: [id number] ID Band Location: Right Leg; Left Arm Sensor Applied: Yes Sensor Number: [id number] Sensor Location : Cord Clamp Vitamin K Given : Not Given Erythromycin Given: Not Given WEIGHT/LENGTH BABY A Infant Birthweight (gm): 4610 Infant Weight (lb): 10 Weight (oz): 3 Infant Length (in): 22.00 Infant Length (cm): 55.88 CORD INFORMATION BABY A No. Cord Vessels: 3 Nuchal Cord : N/A Cord Blood Taken: Yes Suction: Mouth; Nose ASSESSMENT BABY A Complications: None Physical Findings at Delivery: Within Normal Limits Infant Respirations: Appears Normal Ortho Assistant/ALS Called : Yes Infant Care By: RT Transferred To: Remains with Mother
== END 2018-08-16 14:30 | disposition home or self-care (01) | DRG 788 ==
LOC: L-D 08:57 → PP1 21:43
PROVIDERS: ADMIT Obstetrics & Gynecology; ATTEND Obstetrics & Gynecology
PROC: 10D00Z1 Extraction of Products of Conception, Low, Open Approach (ICD-10-PCS; principal; 2018-08-13 10:00)
DX: O36.63X0 Maternal care for excessive fetal growth, third trimester, not applicable or unspecified (principal); O75.82 Onset (spontaneous) of labor after 37 completed weeks of gestation but before 39 completed weeks gestation, with delivery by (planned) cesarean section; Z3A.39 39 weeks gestation of pregnancy; Z37.0 Single live birth
CPT/HCPCS: 85025; 85610; 85730; 86592; 86850; 86900; 86901; 87340; 90715; 99464; J0690; J1885; J2210; J2274; J2405; J2590; J2765; J7120; J7121